=== PATIENT | male | born 1995 | race Hispanic/Latino ===

== ENCOUNTER 2023-09-12 12:40 | Emergency (ER) | payer OTHER, SELFPAY ==
--- NOTE | ~2023-09-12 | XR_ITS ---
EXAMINATION: XR knee LT min 4V DATE: 09/12/2023 12:58 INDICATION: Left knee pain. Injury. TECHNIQUE: 4 views of left knee including standing views were obtained. COMPARISON: None. FINDINGS: Bone alignment is normal. No fracture. Joint spaces are normal. There is a small knee joint effusion. IMPRESSION: 1. Small left knee joint effusion. Reviewed, dictated and finalized at location A. [employer]
[2023-09-12 12:43] VITALS: BP 124/70; PULSE 63; RESP 16; TEMP 36.6; O2SAT 98
--- NOTE | 2023-09-12 12:56 | ED.LOWEXIN ---
HPI - Extremity Injury (Lower) General Chief Complaint: Extremity Injury, Lower Stated Complaint: knee pain Time Seen by Provider: 09/12/23 12:46 History of Present Illness HPI Narrative: Patient is a 28-year-old male who presents ER with left knee injury. He was playing soccer last night when he planted and somebody collided with his knee. He felt a pop. Sudden onset pain. He was able to ambulate off the field. He has increased swelling today. He is able to flex and extend the feels like his knee is Shifting at times. no numbness or tingling. No additional injury. Related Data Allergies Allergy/AdvReac Type Severity Reaction Status Date / Time No Known Allergies Allergy Verified 09/12/23 12:53 Review of Systems Musculoskeletal: Musculoskeletal: Denies back pain, Reports arthralgias, Reports joint swelling and Denies muscle cramps Integumentary/Breasts: Skin/Breast: Reports system reviewed and no additional complaints, except as docu Neurologic: Reports system reviewed and no additional complaints, except as documented PMFSH Past Medical History Medical History (Updated 09/12/23 @ 14:03 by Mars Alcazar MD) Healthy adult male Surgical History Surgical History (Updated 09/12/23 @ 14:03 by Mars Alcazar MD) No history of previous surgery Exam Narrative: GENERAL: Well-appearing, well-nourished, and in no acute distress. HEAD: Normocephalic, atraumatic. ENT: Mucous membranes moist. EXTREMITIES: left lower extremity exam with effusion to left knee. Tender over the MCL. There is significant laxity of the medial aspect of the knee. This causes significant pain as well. No lower extremity swelling. Neuro/vascular intact. SKIN: Warm, dry, no rash. NEURO: Alert and oriented x3. PSYCH: Normal mood and affect. Course Course Emergency Course: Discussed case with orthopedic surgery. Will need for close follow-up and likely MRI. Patient educated on diagnosis and treatment plan. Verbalized understanding. Vital Signs Vital signs: Vital Signs Temperature 97.9 F 09/12/23 12:43 Pulse Rate 63 09/12/23 12:43 Respiratory Rate 16 09/12/23 12:43 Blood Pressure 124/70 09/12/23 12:43 Pulse Oximetry 98 09/12/23 12:43 Oxygen Delivery Room Air 09/12/23 12:43 Temperature 97.9 F 09/12/23 12:43 Pulse Rate 63 09/12/23 12:43 Respiratory Rate 16 09/12/23 12:43 Blood Pressure 124/70 09/12/23 12:43 Pulse Oximetry 98 09/12/23 12:43 Oxygen Delivery Room Air 09/12/23 12:43 MDM - Extremity Injury (Lower) Imaging Data Radiologist's impression: ITS Impressions Knee X-Ray 09/12/23 13:01 IMPRESSION: 1. Small left knee joint effusion. Discharge Plan Discharge Clinical Impression: Instability of MCL Patient Disposition: Home, Self-Care Condition: Stable Instructions: Knee Sprain (ED), Knee Immobilizer (ED) Additional Instructions: It is likely you tore your MCL. Follow-up with orthopedic surgery for further treatment evaluation. He will likely require a MRI. Return to the ER if your leg is red and hot swollen, you have chest pain and shortness of breath, or you have additional concerns. Continue to wear your knee immobilizer and use crutches. Call the orthopedic surgeon provided. Prescriptions: New naproxen 375 mg tablet 375 mg PO BID Qty: 14 0RF hydrocodone-acetaminophen 5-325 mg tablet 1 tablet PO Q6H PRN (Reason: pain) Qty: 10 0RF Follow-up/Referrals: Yee,CELESTINO Watts [Primary Care Provider] - 1 Week Devang Hare MD [Physician] - 1 Week
== END 2023-09-12 14:11 | disposition home or self-care (01) ==
LOC: ANHED 14:01
PROVIDERS: Emergency Provider Emergency Medicine; PCP Registered Nurse
DX: M23.52 Chronic instability of knee, left knee (principal); S89.92XA Unspecified injury of left lower leg, initial encounter; W51.XXXA Accidental striking against or bumped into by another person, initial encounter; Y93.66 Activity, soccer
CPT/HCPCS: 73564; 99283